=== PATIENT | female | born 1945 | race Caucasian/White ===

== ENCOUNTER 2024-01-07 11:22 | Outpatient (REF) | payer OTHER, SELFPAY ==
[2024-01-09 03:43] LABS: Immunoglobulin E 148 kU/L (<OR=114)
== END 2024-01-07 11:23 | disposition home or self-care (01) ==
LOC: HO.10HDL 11:22
PROVIDERS: Visit Provider Otolaryngology
DX: J30.89 Other allergic rhinitis (principal)
CPT/HCPCS: 36415; 82785; 86003